=== PATIENT | male | born 1965 | race American Indian/Alaskan Native ===

== ENCOUNTER 2019-04-24 18:34 | Emergency (ER) | payer MEDICARE ==
[2019-04-24] MEDS ORDERED: MORPHINE IV ONE (19:38)
[2019-04-24] MEDS ORDERED: ZOFRAN IV ONE (19:38)
--- NOTE | 2019-04-24 19:42 | Emergency Department Report ---
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 Patient presented to the ER accompanied by his stating that he slipped and fell just prior to coming to the ER. Patient stated that the floor was wet and he landed on his lower back he also hit his head and complaining of headache. Patient denied any nausea or vomiting. Patient denied any weakness, numbness or tingling sensation. Patient also denied any bowel or bladder incontinence. MD Complaint: fall -: This evening Fall From: standing When Fall Occurred: just prior to arrival Fall Witnessed: yes, by family Place Fall Occurred: home Loss of Consciousness: none Prolonged Down Time?: no Symptoms Prior to Fall: none Location: head, neck, back Severity: moderate Quality: sharp Context: tripped/slipped - Related Data Allergies Allergy/AdvReac Type Severity Reaction Status Date / Time No Known Allergies Allergy Unverified 09/30/14 10:20 ED Review of Systems ROS: Stated complaint: BACK PAIN WITH FALL Other details as noted in HPI Comment: All other systems reviewed and negative Constitutional: denies: chills, fever Respiratory: denies: cough, orthopnea, shortness of breath, SOB with exertion, SOB at rest Cardiovascular: denies: chest pain, palpitations Gastrointestinal: denies: abdominal pain, nausea, vomiting, diarrhea, constipation, hematemesis, melena, hematochezia Musculoskeletal: back pain Neurological: headache. denies: weakness, numbness, paresthesias, confusion, abnormal gait, vertigo ED Past Medical Hx - Past Medical History Hx Hypertension: Yes Hx Asthma: Yes - Social History Smoking Status: Never Smoker ED Physical Exam - General Limitations: Physical Limitation General appearance: alert, in no apparent distress - Head Head exam: Present: atraumatic, normocephalic, normal inspection - Eye Eye exam: Present: normal appearance, PERRL - ENT ENT exam: Present: normal exam, normal orophraynx, mucous membranes moist - Neck Neck exam: Present: normal inspection, full ROM. Absent: tenderness, meningismus, lymphadenopathy, thyromegaly - Respiratory Respiratory exam: Present: normal lung sounds bilaterally - Cardiovascular Cardiovascular Exam: Present: regular rate, normal rhythm, normal heart sounds - GI/Abdominal GI/Abdominal exam: Present: soft, normal bowel sounds. Absent: distended, tenderness, guarding, rebound, rigid, organomegaly, mass, bruit, pulsatile mass, hernia - Extremities Exam Extremities exam: Present: normal inspection, full ROM, normal capillary refill. Absent: pedal edema, calf tenderness - Back Exam Back exam: Present: normal inspection, full ROM, muscle spasm. Absent: tenderness, CVA tenderness (R), CVA tenderness (L), paraspinal tenderness, vertebral tenderness, rash noted - Neurological Exam Neurological exam: Present: alert, oriented X3, CN II-XII intact, reflexes normal. 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 Patient presented to the ER accompanied by his stating that he slipped and fell just prior to coming to the ER. Patient stated that the floor was wet and he landed on his lower back he also hit his head and complaining of headache. Patient denied any nausea or vomiting. Patient denied any weakness, numbness or tingling sensation. Patient also denied any bowel or bladder incontinence. CT brain, CT cervical spine and CT lumbar spine is negative for acute finding. Patient stated that he is feeling much better. Patient is able to move with no difficulties. Normal gait. Patient advised to follow-up with his primary care physician in the next 2-3 days and to return to the ER if symptoms are not improved. Critical care attestation.: If time is entered above; I have spent that time in minutes in the direct care of this critically ill patient, excluding procedure time. ED Disposition Clinical Impression: Fall, Neck pain, Back pain Disposition: TO HOME OR SELFCARE Is pt being admited?: No Condition: Stable Instructions: Fall Prevention (ED), Cervical Sprain (ED), Minor Head Injury (ED) Referrals: SHARDA FERRER MD [Primary Care Provider] - 3-5 Days
--- NOTE | 2019-04-24 20:53 | Cat Scan Report ---
CT lumbar spine without contrast Clinical history: Back pain, fall. FINDINGS: No previous exams are available for comparison. There are multilevel degenerative changes w ith anterior osteophytic formation involving the visualized thoracolumbar spine at. However, there is no CT evidence of acute compression fracture. There is notable right facet joint hypertrophy at L5-at S1 with moderate right neural foraminal narro wing at. The diffuse a disc bulge L4-5 slightly flattens the ventral thecal sac at. There is right fo raminal spondylosis and facet joint hypertrophy which mildly encroaches on the exiting right L4 nerve root sheath at. Milder narrowing is seen on the left. There is a slight diffuse a disc bulge at L3-4 with mild neural foraminal narrowing bilaterally. Ther e is no CT evidence of significant stenosis at L1-2 or L2-3. All CT scans at this location are perfor med using the CT dose reduction for [employer] by means of automated exposure control. IMPRESSION: There is no CT evidence of acute compression fracture involving the lumbar spine. There are multilevel degenerative changes as detailed above. Signer Name: Mal Reeves MD Signed: 04/24/2019 8:48 PM Workstation Name: [id number]
--- NOTE | 2019-04-24 20:59 | Cat Scan Report ---
CT head without contrast Clinical history: Headache, fall FINDINGS: No previous exams available for comparison. The brain appears to demonstrate appropriate at tenuation for age. The ventricular system is within normal limits in size and configuration. There is no clear CT evidence of acute intracranial hemorrhage or significant mass effect. Findings indicativ e of small retention cyst along the lateral left sphenoid sinus at. The calvarium appears intact. The re is developmental tortuosity of the distal left vertebral artery. All CT scans at this location are performed using the CT dose reduction for [employer] by means of automated exposure control. IMPRESSION: There is no CT evidence of acute intracranial process. Signer Name: Mal Reeves MD Signed: 04/24/2019 8:54 PM Workstation Name: [id number]
--- NOTE | 2019-04-24 21:07 | Cat Scan Report ---
CT cervical spine without contrast CLINICAL HISTORY: Neck pain, trauma FINDINGS: No previous exams available for comparison. There are multilevel degenerative endplate ojeda ges and anterior osteophytic formation involving the cervical spine at. However, there is no clear CT evidence of acute fracture. The spondylosis at C3-4 encroaches on the right lateral recess. Furthermore, there is moderate right neural foraminal narrowing. There is a central disc protrusion at C4-5 which appears to mildly flatte n the ventral cord. The central osteophyte/disc complex at C5-C6 also appears to mildly flatten the ventral cord at. The spondylosis at C6-7 is greater on the left with notable effacement of the left lateral recess and mar ked left neural foraminal narrowing. No prevertebral soft tissue fluid collection is identified. All CT scans at this location are performed using the CT dose reduction for [employer] by means of automated e xposure control. . IMPRESSION: There is no CT evidence of acute fracture involving the cervical spine. There are multilevel degenerative changes as detailed above. Signer Name: Mal Reeves MD Signed: 04/24/2019 9:03 PM Workstation Name: [id number]
[2019-04-24 22:40] VITALS: BP 156/98
== END 2019-04-24 22:52 | disposition home or self-care (01) ==
LOC: ED 18:34
DX: M62.830 Muscle spasm of back (principal); M54.2 Cervicalgia; R51 Headache; I10 Essential (primary) hypertension; J45.909 Unspecified asthma, uncomplicated; W01.10XA Fall on same level from slipping, tripping and stumbling with subsequent striking against unspecified object, initial encounter; Y93.01 Activity, walking, marching and hiking; Y92.019 Unspecified place in single-family (private) house as the place of occurrence of the external cause; Y99.8 Other external cause status
CPT/HCPCS: 70450; 72125; 72131; 96374; 96375; 99284; J2270; J2405